=== PATIENT | male | born 1995 | race Caucasian/White ===

== ENCOUNTER 2017-12-30 15:52 | Emergency (ER) | payer BC ==
[~2017-12-30] VITALS: Ht 182.9 cm; Wt 74.4 kg
[2017-12-30 16:09] VITALS: BP 123/72
== END 2017-12-30 16:43 | disposition home or self-care (01) ==
LOC: ER 15:55
DX: R21 Rash and other nonspecific skin eruption (principal); Z76.0 Encounter for issue of repeat prescription